=== PATIENT | male | born 1980 | race Two or more races ===

== ENCOUNTER 2018-03-20 01:44 | Inpatient (IN) | payer SELFPAY ==
[~2018-03-20] VITALS: Ht 165.1 cm; Wt 65.5 kg
[2018-03-20 07:03] VITALS: BP 136/88
[2018-03-20] MEDS ORDERED: SERT50TA12 PO (07:29)
[2018-03-20] MEDS ORDERED: PERCT10 PO (07:29)
[2018-03-20] MEDS ORDERED: HALOPERIDOL 5 MG TABLET PO PRN (07:30)
[2018-03-20] MEDS ORDERED: LORazepam 2 MG TABLET PO PRN (07:30)
[2018-03-20] MEDS ORDERED: ZOLPIDEM TARTRATE 10 MG TABLET PO PRN (07:30)
[2018-03-20 08:27] VITALS: BP 137/93
[2018-03-20] MEDS ORDERED: ONDANSETRON HCL 4 MG TABLET PO PRN (10:15)
[2018-03-20] MEDS ORDERED: DOCUSATE SODIUM 100 MG CAPSULE PO PRN (10:15)
[2018-03-20] MEDS ORDERED: MAGNESIUM HYDROXIDE SUSPENSION 30 ML UDCUP PO PRN (10:15)
[2018-03-20] MEDS ORDERED: ACETAMINOPHEN 325 MG TABLET PO PRN (10:15)
[2018-03-20] MEDS ORDERED: CloNIDine HCL 0.1 MG TABLET PO PRN (10:15)
[2018-03-20] MEDS ORDERED: ALBUTEROL SULFATE HFA 90 MCG/PUFF 8 GM INHALER IH PRN (10:15)
[2018-03-20] MEDS ORDERED: PETROLATUM,WHITE 71 GM JELLY TP PRN (10:15)
[2018-03-20] MEDS ORDERED: MAG HYDROX/AL HYDROX/SIMETH ES 30 ML SUSPENSION UDCUP PO PRN (10:15)
[2018-03-20] MEDS ORDERED: LOPERAMIDE HCL 2 MG CAPSULE PO PRN (10:15)
[2018-03-20] MEDS ORDERED: IBUPROFEN 400 MG TABLET PO PRN (10:15)
[2018-03-20 16:07] VITALS: BP 128/77
[2018-03-21 06:14] VITALS: BP 118/75
[2018-03-21 08:35] VITALS: BP 118/68
[2018-03-21] MEDS: ESCITALOPRAM OXALATE 10 MG TABLET PO SCH (09:00)
[2018-03-21 09:26] LABS: HEMATOCRIT 46.7 % (41-53); HEMOGLOBIN 15.6 g/dL (13.5-17.5); MEAN CORPUSCULAR HEMOGLOBIN 30.5 pg (26.0-34.0); MEAN CORPUSCULAR HGB CONC 33.4 G/dL (31.0-37.0); MEAN CORPUSCULAR VOLUME 91 fL (80-100); PLATELET COUNT (AUTO) 377 K/uL (150-450); RED BLOOD CELL COUNT(AUTO) 5.12 MIL/uL (4.50-5.90); RED CELL DISTRIBUTION WIDTH 14.4 % (11.5-14.5)
[2018-03-21 09:46] LABS: HEMOGLOBIN A1C 5.7 % (4.5-6.2)
[2018-03-21 09:53] LABS: ALANINE AMINOTRANSFERASE 98 U/L (12-78); ALBUMIN 3.2 g/dL (3.4-5.0); ALKALINE PHOSPHATASE 143 U/L (46-116); ANION GAP 7 mmol/L (8-16); ASPARTATE AMINOTRANSFERASE 84 U/L (15-37); BILIRUBIN,TOTAL 0.3 mg/dL (0.1-1.0); CALCIUM, TOTAL 8.4 mg/dL (8.8-10.5); CARBON DIOXIDE 27 mmol/L (22-29); CHLORIDE 104 mmol/L (98-107); CHOLESTEROL 157 mg/dL (131-200); CREATININE 0.87 mg/dL (0.60-1.30); GLOMERULAR FILTR. RATE CALC > 60 mL/min (>60); GLUCOSE,RANDOM 83 mg/dL (70-110); HDL CHOLESTEROL 39 mg/dL (40-60); LDL CHOL (CALC.) 90 mg/dL (0-130); POTASSIUM 3.9 mmol/L (3.5-5.1); SODIUM SERUM 138 mmol/L (136-145); THYROID STIMULATING HORMONE 0.37 uIU/mL (0.36-3.74); TOTAL PROTEIN, SERUM 7.3 g/dL (6.4-8.2); TRIGLYCERIDES 142 mg/dL (15-150); UREA NITROGEN, BLOOD 12 mg/dL (7-18)
[2018-03-21 10:35] LABS: BAND NEUTROPHILS % (MANUAL) 0 % (0-5)
[2018-03-21 10:46] LABS: BASOPHILS % (MANUAL) 1 % (0-2); LYMPHOCYTES % (MANUAL) 52 % (22-44); MONOCYTES % (MANUAL) 12 % (2-9); REACTIVE LYMPHOCYTES 2 % (0-0); SEGMENTED NEUTROPHILS % 33 % (40-70)
[2018-03-21 16:32] VITALS: BP 118/62
[2018-03-22 06:44] VITALS: BP 126/66
[2018-03-22 08:29] VITALS: BP 126/82
[2018-03-22] MEDS: ESCITALOPRAM OXALATE 10 MG TABLET PO SCH (08:50)
[2018-03-22] MEDS ORDERED: ESCI10TA54 PO (11:29)
[2018-03-22] MEDS ORDERED: ESCI10TA PO (11:46)
== END 2018-03-22 13:20 | disposition home or self-care (01) | DRG 885 ==
LOC: EDSTATUS 06:56 → B3A 07:31 → B2S 14:29
DX: F33.2 Major depressive disorder, recurrent severe without psychotic features (principal); F41.9 Anxiety disorder, unspecified; G47.00 Insomnia, unspecified; F19.10 Other psychoactive substance abuse, uncomplicated; Z91.5 Personal history of self-harm; Z79.899 Other long term (current) drug therapy; Z71.51 Drug abuse counseling and surveillance of drug abuser
CPT/HCPCS: 83036; 84436; 84439; 84443; 99285